=== PATIENT | female | born 1930 | race African-American/Black ===

== ENCOUNTER 2018-04-06 17:41 | Emergency (ER) | payer OTHER ==
[~2018-04-06] VITALS: Ht 165.1 cm; Wt 59.0 kg
[2018-04-06 17:47] VITALS: BP 201/104
[2018-04-06] MEDS ORDERED: KEPPRA750 MG PO ×2 (17:53→18:06)
[2018-04-06] MEDS ORDERED: ZOCOR20 MG PO (17:53)
== END 2018-04-06 18:12 | disposition home or self-care (01) ==
LOC: M.ERS 17:41
DX: Z76.0 Encounter for issue of repeat prescription (principal); R56.9 Unspecified convulsions; I10 Essential (primary) hypertension; Z96.642 Presence of left artificial hip joint

== ENCOUNTER 2019-07-22 08:51 | Observation (INO) | payer OTHER ==
[~2019-07-22] VITALS: Ht 165.1 cm; Wt 72.2 kg
[~2019-07-22 08:51] MED LIST: KEPPRA750 MG PO; ZOCOR20 MG PO
[2019-07-22 08:52] VITALS: BP 152/83
[2019-07-22] MEDS ORDERED: SIMVASTATIN40 MG PO (08:58)
[2019-07-22] MEDS ORDERED: BENICAR40 MG PO (08:59)
[2019-07-22] MEDS ORDERED: MECLIZINE HCL12.5 MG PO (08:59)
--- NOTE | 2019-07-22 09:03 | NUR ---
SANJAY TILLEY (DAUGHTER) [phone]
[2019-07-22 10:08] LABS: ABSOLUTE BASOPHILS 0.1 thou/uL (0.0-0.2); ABSOLUTE MONOCYTES 0.4 thou/uL (0.0-1.2); ABSOLUTE NEUTROPHILS 7.2 thou/uL (1.6-8.1); BASOPHILS 1.2 %; EOSINOPHILS 0.1 %; HEMATOCRIT 36.7 % (37.0-47.0); HEMOGLOBIN 12.2 gm/dL (12.0-15.0); LYMPHOCYTES 11.8 %; MCH 28.7 pg (26.0-34.0); MCHC 33.3 g/dL (28.0-37.0); MCV 86.2 fL (80.0-100.0); MONOCYTES 4.1 %; MPV 7.1 fl. (7.2-11.1); NUCLEATED RBCS 0 /100WBC; PLATELET COUNT* 228 thou/uL (150-400); POLYS 82.8 %; RBC 4.26 mil/uL (4.20-5.00); RDW-CV 14.3 % (10.5-14.5); WBC 8.7 thou/uL (4.0-11.0)
[2019-07-22 10:21] LABS: CALCIUM 8.2 mg/dL (8.5-10.1); CREATININE 1.4 mg/dL (0.6-1.3); POTASSIUM 4.1 mmol/L (3.5-5.1)
[2019-07-22 10:31] LABS: ALBUMIN 3.6 g/dL (3.4-5.0); TOTAL BILIRUBIN 0.4 mg/dL (<0.1-1.0); TOTAL PROTEIN 7.7 g/dL (6.4-8.2)
--- NOTE | 2019-07-22 12:42 | NUR ---
PT'S DAUGHTER NOTIFIED OF PT BEING ADMITTED TO HOSPITAL. RN TO CALL DAUGHTER, SANJAY, WHEN BED IS AVAILABLE
--- NOTE | 2019-07-22 13:46 | NUR ---
SANJAY PT'S DAUGHTER [phone] REQUESTS UPDDATES ON PT'S CARE, PT GIVES PERMISSION FOR UPDATES TO BE PROVIDED TO HER.
[2019-07-22 13:50] VITALS: BP 127/62
[2019-07-22 14:27] VITALS: BP 156/86
--- NOTE | 2019-07-22 14:31 | NUR ---
PT ADMMITTED AT 1400 ON TELE FLOOR. ON 2 LNC. VSS. AOX4. SEIZURE PRECAUTION IN PLACE. BED ALRM ON. DENIES PAIN. NO MORE COMPLAINT. ADMISSION O=DONE. CALL LIGHT AT REACH
[2019-07-22 16:14] VITALS: BP 147/80
[2019-07-22 19:40] VITALS: BP 165/82
[2019-07-23] VITALS (7 sets, daily range): BP systolic 124–173; BP diastolic 55–92
--- NOTE | 2019-07-23 05:54 | NUR ---
ASSUMED CARE OF PT AT 1900. PT IS ALERT AND ORIENTED X 2. VSS. PERRLA. NO COMPLAINTS OF PAIN. PT IS UP WITH 1 ASSIST. PT IS IN SINUS RYTHM ON THE TELEMETRY. PT IS RESTING COMFORTABLY IN BED. RESPIRATIONS ARE EVEN AND NONLABORED. WILL CONTINUE TO MONITOR PT.
--- NOTE | 2019-07-23 07:24 | EKG ---
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[place] : [phone] Requested By: Chasity Hicks Order Number: [id number] MD: González Wilson Measurements Intervals [place] Rate: 109 P: 39 LA: 184 QRS: 12 QRSD: 81 T: -7 QT: 347 QTc: 468 Interpretive Statements Sinus tachycardia LVH by voltage Borderline T abnormalities, diffuse leads No previous ECG available for comparison Electronically Signed On 07-23-2019 7:23:12 CDT by González Wilson [email or web address] <ELECTRONICALLY SIGNED> By: González Wilson MD, [facility] 07/23/19 0723 0856 0856 González Wilson MD, [facility] /EPI
[2019-07-23 07:49] LABS: HEMATOCRIT 33.7 % (37.0-47.0); HEMOGLOBIN 11.5 gm/dL (12.0-15.0); MCH 28.8 pg (26.0-34.0); MCV 84.7 fL (80.0-100.0); MPV 7.5 fl. (7.2-11.1); RBC 3.98 mil/uL (4.20-5.00); RDW-CV 14.2 % (10.5-14.5); WBC 4.7 thou/uL (4.0-11.0)
[2019-07-23 08:10] LABS: ALBUMIN 3.2 g/dL (3.4-5.0); CALCIUM 7.8 mg/dL (8.5-10.1); CREATININE 1.1 mg/dL (0.6-1.3); MAGNESIUM 2.3 mg/dL (1.8-2.4); POTASSIUM 4.1 mmol/L (3.5-5.1); TOTAL BILIRUBIN 0.5 mg/dL (<0.1-1.0); TOTAL PROTEIN 6.8 g/dL (6.4-8.2)
[2019-07-23] MEDS ORDERED: KEPPRA 500 MG500 M1 PO (11:56)
--- NOTE | 2019-07-23 13:45 | NUR ---
AT 1343, THIS NURSE TALKED TO NEUROLOGIST REGARDING OK TO DISCHARGE PT. DOCTOR STATES THAT HE WILL CALLL BACK IN A COUPLE OF HOURS AFTER HE TAKES A LOOK AT THE RESULTS. SEIZURE PRECAUTION IN PLACE. DENIES PAIN. PT IS ALERT, AWAKE, ORIENTED TO PERSON. DESORIENTED TO PLACE, SITUATION, OR TIME. ON RA. O2 SATURATIONI 96% ON RA. NORMAL SALINE INFUSING AT 80CC/HOUR. RENAL US DONE THIS AM. MRI DONE WELL. DISCHARGE PENDING NEURO APPROVAL AND REFFERAL. CALL LIGHT WITHIN REACH. WILL CONTINUET TO MONITOR PT
--- NOTE | 2019-07-23 15:07 | NUR ---
Pt is A&O, some confusion. Resides at home with dtr. Independent. No hx of HH or SNF. Pt to dc to home today pending neuro signing off.
--- NOTE | 2019-07-23 16:40 | NUR ---
pt up with stand by assist to the restroom . patient does not have any other seizure episodes. call light at reach. fall precaution in place
--- NOTE | 2019-07-23 17:34 | NUR ---
pt left unit at 1720 accompanied by nurse staff. iv line removed. heart monitor retrieved. belongings brought along. pt's daughter picked her up. this nurse communicated discharge instruction to the pt's daughter.
--- NOTE | 2019-07-24 18:04 | EEG ---
[address] [address] EEG STUDY REPORT Name: NYA RNAKIN Room: [address] Jose Garcia#: [id number] Admission: 07/22/19 Attend Phys: Brigid Ricci MD Discharge: 07/23/19 Date of : [birth year] Report #: [id number] THIS REPORT FOR: //name// CC: [facility] physician/PCP Brigid Ricci DATE OF SERVICE: 07/22/2019 This patient is being evaluated for the possibility of seizure. EEG was done by placing the electrode by standard 10-20 system of electrode placement. Both referential and sequential montages were used for recording. Background activity in this patient's EEG is about 8 Hz and 20 microvolt. The patient goes to sleep that is associated with bilateral slowing, especially in the central area. Photic stimulation is unremarkable. Throughout the record, no active epileptiform activity was noticed. IMPRESSION: This patient's EEG is intermixed with slowing on both sides. That is a nonspecific abnormality, which can occur with encephalopathy, effect of psychotropic medication, dementia, etc. No active epileptiform activity was noticed, but EEG can be normal in a patient with a seizure disorder. Thank you very much for this referral. <ELECTRONICALLY SIGNED> By: Denilson Hickman MD 07/24/19 1804 0950 [id number] Hickman MD /real
--- NOTE | 2019-07-24 18:04 | CON ---
[address] [address] CONSULTATION Name: NYA RANKIN Miya Room: [address] Jose Garcia#: [id number] Admission: 07/22/19 Attend Phys: Brigid Ricci MD Discharge: 07/23/19 Date of : [birth year] Report #: [id number] THIS REPORT FOR: //name// cc: BELÉN - No family physician/PCP FAM - No family physician/PCP ~ THIS REPORT FOR: //name// CC: BELÉN physician/PCP Brigid Ricci DATE OF SERVICE: 07/22/2019 HISTORY OF PRESENT ILLNESS: This is an 89-year-old female patient who is unable to provide any history at all. This patient does not appear to have any good memory. So I called the patient's daughter and got the history from her. She indicated that this patient has a longstanding history of seizure disorder. She does not exactly know when it started, but it was long time ago. She follows up with a neurologist at [facility] and she does not know his name. The records in the computer are limited. In 2019, she was here with a breakthrough seizure because she ran out of Keppra. This time, she was taking 750 mg p.o. b.i.d. of Keppra and she still had a seizure, but history is more complicated than that. She indicates she was advised to take 1500 mg p.o. b.i.d. of Keppra. She did not take it because she was feeling sleepy. She has not been tried on any alternate anticonvulsant. It is not sure when the last imaging study was in this patient, but it was more than a year ago. She is not sure what it showed. REVIEW OF SYSTEMS: Positive for hip replacement. The daughter says the patient does not have dementia. She does have a history of hypertension and vertigo. This was her relevant 14-point review of system. PAST MEDICAL HISTORY: Positive for seizure. FAMILY HISTORY: Negative for early age epilepsy. SOCIAL HISTORY: She does not smoke or drink any alcohol. PHYSICAL EXAMINATION: Indicates she is alert. She is responsive. She can follow simple and complex command, but her memory is very poor. She is not able to tell me what month and what date today is. Cranial nerve examination 2-12 was attempted; looks mostly noncontributory within the limits of her cooperation. She moves all 4 extremities. Her position sense is intact. Reflexes and tone is symmetrical. There is no cerebellar sign. I could not look at the fundus. This patient is a well-built individual who does not have any dysmorphic features of eyes, ears and face. Her vision and hearing looks adequate. Pulses are difficult to feel. Blood pressure is 147/80, respirations 17, pulse is 86, temperature is 98.2. [place] [address] CONSULTATION Name: NYA RANKIN Room: [address] Radha#: [id number] Admission: 07/22/19 Attend Phys: Brigid Ricci MD Discharge: 07/23/19 Date of : [birth year] Report #: [id number] LABORATORY DATA: White count is 8.7. Glomerular filtration rate is 43, calcium is somewhat low. Magnesium was not checked. IMPRESSION: Breakthrough seizure. This patient cannot tolerate high dose of Keppra at 1500 mg p.o. b.i.d. I talked to the daughter that we can try 1000 b.i.d. She is willing to do that, but they should talk to their neurologist as an outpatient to address that with them if she needs to be on alternative anticonvulsant which I will recommend. She should take seizure precautions. We will check more blood workup an MRI tomorrow, and if that is okay, then from neurological perspective, we can send her home for 1000 mg p.o. b.i.d. of Keppra, but they should contact their neurologist as soon as possible so that a discussion can be carried out for an alternative anticonvulsant. Thank you very much for this referral. <ELECTRONICALLY SIGNED> By: Denilson Hickman MD 07/24/19 1804 1830 [id number] Hickman MD /nt
== END 2019-07-23 18:04 | disposition home or self-care (01) ==
LOC: M.ERS 08:51 → M.2W 13:12 → M.TBA-ER 13:12 → M.ERS 13:51 → M.2W 14:00
PROVIDERS: Personal Emergency Response Attendant; ADMIT Internal Medicine; ATTEND Internal Medicine
DX: G40.909 Epilepsy, unspecified, not intractable, without status epilepticus (principal); I10 Essential (primary) hypertension